=== PATIENT | male | born 1955 | race African-American/Black ===

== ENCOUNTER 2018-09-28 15:27 | Observation (INO) | payer OTHER ==
[2018-09-28] MEDS ORDERED: NA CHLORIDE 0.9% 100 ML IV ONE (16:28)
[2018-09-28] MEDS ORDERED: MIDODRINE HCL 5 MG TABLET PO ONE (17:00)
--- NOTE | 2018-09-28 17:01 | RAD REPORT ---
EXAM DESCRIPTION: RAD - Shoulder Left 2 View - 09/28/2018 4:35 pm CLINICAL HISTORY: Left shoulder pain COMPARISON: None. TECHNIQUE: Internal and external rotation views of the left shoulder were obtained. FINDINGS: There is no fracture or dislocation. AC joint is normal in appearance. Minimal degenerativ e change seen along the undersurface of the acromion. Acromial humeral joint space is normal. No abno rmal soft tissue calcifications. IMPRESSION: Mild left shoulder degenerative change. No acute finding.
--- NOTE | 2018-09-28 17:03 | RAD REPORT ---
EXAM DESCRIPTION: RAD - Chest Single View - 09/28/2018 4:35 pm CLINICAL HISTORY: Dialysis patient, hypotension, weakness, confusion COMPARISON: None. TECHNIQUE: AP portable chest image was obtained 1631 hours . FINDINGS: Lungs are underinflated. Interstitial markings are prominent in both lung [place] with base line for the patient unknown. There is focal pleural and parenchymal opacification in the lateral rig ht base. In the absence of a comparison common pneumonia and pleural effusion would be the primary co nsideration. Cardiomegaly is present. Vasculature is prominent. No pneumothorax. No acute bony abnorm ality seen. No acute aortic findings suspected. IMPRESSION: Baseline chest film showing right base pleural and parenchymal opacification. In the absence of new comparison, right base pneumonia and pleural effusion would be the primary cons ideration. Cardiomegaly and vascular engorgement are present. A mild failure or volume overload suspected as berna lewis
[2018-09-28 17:17] LABS: Absolute Lymphocytes (CBC) 0.3 K/uL (0.7-4.9); Absolute Monocytes 0.6 K/uL (0.1-1.3); Absolute Neutrophil 4.3 K/uL (1.8-8.0); Eosinophils % 3.2 % (0-4.4); Hematocrit 37.7 % (39.6-49.0); Lymphocytes % 6.1 % (15.3-44.8); MPV 9.5 fL (7.6-11.3); Monocytes % 11.6 % (3.3-12.3)
[2018-09-28 17:19] LABS: Protime INR 1.24
[2018-09-28 17:24] LABS: Albumin 3.5 g/dL (3.4-5.0); Bilirubin Direct 0.5 mg/dL (0-0.2); Bilirubin Total 0.9 mg/dL (0.2-1.0); Magnesium 2.2 mg/dL (1.8-2.4); Potassium 3.1 mmol/L (3.5-5.1); Protein, Total 7.8 g/dL (6.4-8.2); Troponin (Emerg Dept Use Only) 0.45 ng/mL (0.0-0.045)
--- NOTE | 2018-09-28 17:30 | EKG ---
Test Date: 2018-09-28 Test Time: 15:37:46 Broadcast Field Supervisor: LIDA MEASUREMENT RESULTS: Intervals: Rate: 78 NE: 232 QRSD: 160 QT: 480 QTc: 547 [place]: P: 73 NE: 232 QRS: 207 T: 116 INTERPRETIVE STATEMENTS: Sinus rhythm with 1st degree AV block with occasional premature ventricular complexes Right superior axis deviation Nonspecific intraventricular block Abnormal ECG No previous ECG available for comparison Electronically Signed On 09-28-18 16:20:21 CDT by Kenny Schulte
[2018-09-28] MEDS ORDERED: Levofloxacin500mg IV 500 MG/100 ML BAG IV ONE (17:33)
--- NOTE | 2018-09-28 18:02 | ER ---
Nurse's Notes [facility] Name: Jorge Alberto Middleton Jr Age: 63 yrs Sex: Male : 1955 Arrival Date: 09/28/2018 Time: 15:30 Bed 6 Private MD: Diagnosis: Hypotension;Altered mental status, unspecified;End stage renal disease;Pleural effusion, not elsewhere classified;Pneumonia Presentation: 09/28 15:30 Presenting complaint: states: "he got really weak and I helped him down to the aa5 floor and he started acting a little confused". EMS reports pt was A\\T\\Ox 4 at scene arrival and c/o left shoulder pain. EMS reports systolic BP 90s. Pt is unsure whether he took Midodrine prior to dialysis as prescribed. 15:30 Transition of care: patient was not received from another setting of care. Onset of aa5 symptoms was September 28, 2018. Care prior to arrival: Medication(s) given: zofran 4 mg, Fentanyl 50mcg IVP Glucose check: 134 Oxygen administered. via nasal cannula, 22 G inserted to L FA by EMS, IV was dc'd, Dialysis fistula noted to left FA. 15:30 Acuity: MENDY 2 aa5 15:30 Method Of Arrival: EMS: [facility] aa5 15:34 Risk Assessment: Do you want to hurt yourself or someone else? Patient reports no tw2 desire to harm self or others. 19:09 Initial Sepsis Screen: Does the patient meet any 2 criteria? No. Patient's initial tw2 sepsis screen is negative. Does the patient have a suspected source of infection? No. Patient's initial sepsis screen is negative. Historical: - Allergies: 15:33 Sulfa (Sulfonamide Antibiotics); tw2 15:30 PENICILLINS; aa5 - PMHx: 15:30 Myocardial infarction; Ejection Fraction 33%; Right Pleural Effusion; Dialysis- MWF; aa5 ESRD; - PSHx: 15:33 CABG; tw2 15:30 Cholecystectomy; Heart stents; cataracts; Dialysis fistula to L FA; aa5 - Immunization history:: Adult Immunizations. - Social history:: Smoking status: . - Ebola Screening: : Patient denies travel to an Ebola-affected area in the 21 days before illness onset. - Family history:: not pertinent. - Hospitalizations: : No recent hospitalization is reported. Screenin:33 Abuse screen: Denies threats or abuse. Nutritional screening: No deficits noted. tw2 Tuberculosis screening: No symptoms or risk factors identified. Fall Risk Secondary diagnosis (15 points) impaired mobility. Assessment: 15:40 Reassessment: Pt's called Dialysis and they reported they were only able to take aa5 0.2 Kg of fluid out due to pt's BP being low, around 90s systolic. MD was notified. . 16:23 Reassessment: pt updated on POC, spoke with Kaylene with lab services for assistance with a sg difficulty blood draw, awaiting lab at this time. 17:00 Reassessment: Patient appears in no apparent distress at this time. Patient and/or sg family updated on plan of care and expected duration. Pain level reassessed. pt family member remains at bedside at this time Patient denies pain at this time. Patient states feeling better. 18:00 Reassessment: Patient appears in no apparent distress at this time. Patient is alert, sg oriented x 3, equal unlabored respirations, skin warm/dry/pink. at bedside for insertion of IV and to obtain blood cultures at this time. 19:10 General: Appears in no apparent distress. uncomfortable, Behavior is calm, cooperative, tl2 appropriate for age. General:. Pain: Complains of pain in right arm. Neuro: Level of Consciousness is awake, alert, obeys commands, Oriented to person, place, time, situation. Neuro: Reports dizziness, weakness. Cardiovascular: Denies chest pain. Respiratory: Reports cough that is Airway is patent Respiratory effort is even, unlabored, Respiratory pattern is regular, symmetrical. GI: No signs and/or symptoms were reported involving the gastrointestinal system. : No signs and/or symptoms were reported regarding the genitourinary system. Derm: Skin is pink, warm \\T\\ dry. 21:54 Reassessment: 20 g R AC infiltrated. IV removed. Danica from ICU at bedside to attempt tl2 midline access. Vital Signs: 15:32 BP 76 / 58; Pulse 78; Resp 16; Pulse Ox 97% ; tw2 15:32 Temp 97.7(O); aa5 16:30 BP 104 / 68; Pulse 79; Resp 17; Pulse Ox 99% on R/A; tw2 17:30 BP 90 / 62; Pulse 76; Resp 17; Pulse Ox 100% on R/A; tw2 18:37 BP 95 / 61; Pulse 71; Resp 17; Pulse Ox 98% on R/A; sg 21:08 BP 93 / 57; Pulse 71; Resp 18; Pulse Ox 99% on R/A; tl2 ED Course: 15:30 Patient arrived in ED. tw2 15:31 Nasir Mclaughlin MD is Attending Physician. tw2 15:32 Hortencia Jackman RN is Primary Nurse. tw2 15:33 Placed in gown. Adult w/ patient. equipment monitor phototypesetting on. Pulse ox on. NIBP on. tw2 15:34 Arm band placed on. tw2 15:44 Triage completed. aa5 15:46 EKG done, by cell phone repair technician. reviewed by Nasir Mclaughlin MD. dt2 16:35 Inserted saline lock: 22 gauge in right antecubital area, using aseptic technique. jb1 16:36 XRAY Chest (1 view) In Process Unspecified. EDMS 16:36 XRAY Shoulder LEFT 2 view In Process Unspecified. EDMS 18:00 First set of blood cultures drawn by physician. Inserted saline lock: 20 gauge in right sg antecubital area, using aseptic technique. Blood collected. IV inserted by via ultrasound guided. 18:01 Margaret Hansen MD is Hospitalizing Provider. rn 18:20 Second set of blood cultures drawn by physician. sg 21:30 IV discontinued, intact, bleeding controlled, No redness/swelling at site. Pressure tl2 dressing applied. 22:17 Inserted saline lock: 18 gauge in right upper arm, using aseptic technique. placed by tl2 Danica JOINT CUTTER. 22:48 No provider procedures requiring assistance completed. tl2 Administered Medications: 16:42 Drug: midodrine 5 mg Route: PO; tw2 19:07 Follow up: Response: No adverse reaction tw2 18:20 Drug: NS 0.9% 100 ml Route: IV; Rate: 1 bolus; Site: right antecubital; sg 19:00 Follow up: IV Status: Completed infusion tl2 19:42 Drug: LevaQUIN 500 mg Volume: 100 ml; Route: IVPB; Infused Over: 60 mins; Site: right tl2 antecubital; 20:45 Follow up: IV Status: Completed infusion tl2 Outcome: 18:01 Decision to Hospitalize by Provider. rn 22:48 Admitted to Tele accompanied by nurse, via stretcher, room 419, with chart, Report tl2 called to CHRISTIE Vee 22:48 Condition: stable 22:48 Discharge instructions given to patient, Instructed on the need for admit. 22:50 Patient left the ED. tl2 Signatures: Dispatcher [employer] EDMS Omar Talamantes jb1 Alfredo Adamson RN RN Nasir Angeles MD MD rn Calderon, Audri RN RN aa5 Hortencia Jackman RN RN tw2 Basia Magana RN RN tl2 Lidya Shields dt2 Corrections: (The following items were deleted from the chart) 15:45 15:30 Presenting complaint: states: "he got really weak and I helped him down to aa5 the floor and he started acting a little confused". EMS reports pt was A\\T\\Ox 4 at scene arrival and c/o left shoulder pain. aa5 15:49 15:30 Presenting complaint: states: "he got really weak and I helped him down to aa5 the floor and he started acting a little confused". EMS reports pt was A\\T\\Ox 4 at scene arrival and c/o left shoulder pain. Pt is unsure whether he took Midodrine prior to dialysis as prescribed aa5 15:49 15:30 Care prior to arrival: Glucose check: 134 Oxygen administered. via nasal cannula, aa5 22 G inserted to L FA by EMS, IV was dc'd, Dialysis fistula noted to left FA. aa5
--- NOTE | 2018-09-28 18:03 | EDPHYS ---
Physician Documentation [facility] Name: Jorge Alberto Middleton Jr Age: 63 yrs Sex: Male : 1955 Arrival Date: 09/28/2018 Time: 15:30 Bed 6 Private MD: ED Physician Nasir Mclaughlin HPI: 09/28 15:40 This 63 yrs old Black Male presents to ER via Unassigned with complaints of weakness, rn AMS. 15:40 The patient presents with confusion, decreased responsiveness, disorientation. Onset: rn The symptoms/episode began/occurred today. Possible causes: unknown. Associated signs and symptoms: Pertinent positives: confusion, lightheadedness. Current symptoms: In the emergency department the patient's symptoms have improved. The patient has experienced similar episodes in the past. states after dialysis, patient was in another room, called for help, reports felt lightheaded, had to help him down, did not lose consciousness, no trauma, reports mild confusion, patient does not know if he took his midodrine today and apparently chronically has low blood pressure. Only took off 0.2kg of fluid off today due to low blood pressure and sent him home. . Historical: - Allergies: 15:33 Sulfa (Sulfonamide Antibiotics); tw2 15:30 PENICILLINS; aa5 - PMHx: 15:30 Myocardial infarction; Ejection Fraction 33%; Right Pleural Effusion; Dialysis- MWF; aa5 ESRD; - PSHx: 15:33 CABG; tw2 15:30 Cholecystectomy; Heart stents; cataracts; Dialysis fistula to L FA; aa5 - Immunization history:: Adult Immunizations. - Social history:: Smoking status: . - Ebola Screening: : Patient denies travel to an Ebola-affected area in the 21 days before illness onset. - Family history:: not pertinent. - Hospitalizations: : No recent hospitalization is reported. ROS: 15:40 Constitutional: Negative for fever, chills, and weight loss, Eyes: Negative for injury, rn pain, redness, and discharge, Neck: Negative for injury, pain, and swelling, Cardiovascular: Negative for chest pain, palpitations, and edema, Respiratory: Negative for shortness of breath, cough, wheezing, and pleuritic chest pain, Abdomen/GI: Negative for abdominal pain, nausea, vomiting, diarrhea, and constipation, MS/Extremity: + left shoulder pain Skin: Negative for injury, rash, and discoloration, Neuro: Negative for headache, numbness, tingling, and seizure. Exam: 15:40 Constitutional: This is a well developed, well nourished patient who is awake, alert, rn and in no acute distress. Appears irritated. Head/Face: Normocephalic, atraumatic. Eyes: Periorbital areas with no swelling, redness, or edema. ENT: very dry MM Neck: Trachea midline, no thyromegaly or masses palpated, and no cervical lymphadenopathy. Supple, full range of motion without nuchal rigidity, or vertebral point tenderness. No Meningismus. Cardiovascular: Regular rate and rhythm, No pulse deficits. Respiratory: Lungs have equal breath sounds bilaterally, clear to auscultation. No increased work of breathing, no retractions or nasal flaring. Abdomen/GI: soft, non-tender MS/ Extremity: No cyanosis. Neuro: Awake and alert, GCS 15, oriented to person, place, time, and situation. Cranial nerves II-XII grossly intact. Motor strength 5/5 in all present extremities. Vital Signs: 15:32 BP 76 / 58; Pulse 78; Resp 16; Pulse Ox 97% ; tw2 15:32 Temp 97.7(O); aa5 16:30 BP 104 / 68; Pulse 79; Resp 17; Pulse Ox 99% on R/A; tw2 17:30 BP 90 / 62; Pulse 76; Resp 17; Pulse Ox 100% on R/A; tw2 18:37 BP 95 / 61; Pulse 71; Resp 17; Pulse Ox 98% on R/A; sg 21:08 BP 93 / 57; Pulse 71; Resp 18; Pulse Ox 99% on R/A; tl2 MDM: 15:34 Patient medically screened. rn 16:06 Refusal of service: The patient/guardian displays adequate decision making capability rn and despite a detailed discussion of alternatives, benefits, risks, and consequences refuses: CT Scan. 16:06 ED course: refuses CT head, states is looking better and doesn't need it.. rn 17:59 Differential Diagnosis: electrolyte abnormality, pneumonia, sepsis, volume depletion. rn Data reviewed: vital signs, nurses notes, lab test result(s), EKG, radiologic studies, plain films, and as a result, I will admit patient. Counseling: I had a detailed discussion with the patient and/or guardian regarding: the historical points, exam findings, and any diagnostic results supporting the discharge/admit diagnosis, lab results, radiology results, the need for further work-up and treatment in the hospital. Admission orders: after a detailed discussion of the patient's condition and case, the admit orders are written by me. ED course: Pt with elevated BNP/troponin/lactate, states they have been doubling his dialysis to try and get rid of pleural effusion as well as 2 rounds on abx for 1 month. Will admit to Dr. Hansen for further w/u and Dr. Mcgee is his life skills specialist here. . ED course: BP improved to 90s systolic after 100cc fluid challenge and midodrine.. 09/28 15:37 Order name: CPK; Complete Time: 17:43 rn 09/28 15:37 Order name: Basic Metabolic Panel; Complete Time: 17:43 rn 09/28 15:37 Order name: CBC with Diff; Complete Time: 17:43 rn 09/28 15:37 Order name: Hepatic Function; Complete Time: 17:43 rn 09/28 15:37 Order name: Lipase; Complete Time: 17:43 rn 09/28 15:37 Order name: Magnesium; Complete Time: 17:43 rn 09/28 15:37 Order name: Protime (+inr); Complete Time: 17:43 rn 09/28 15:37 Order name: Ptt, Activated; Complete Time: 17:43 rn 09/28 15:37 Order name: Troponin (emerg Dept Use Only); Complete Time: 17:43 rn 09/28 15:37 Order name: Blood Culture Adult (2) rn 09/28 15:37 Order name: Procalcitonin; Complete Time: 17:43 rn 09/28 15:37 Order name: Lactate; Complete Time: 17:43 rn 09/28 15:37 Order name: BNP; Complete Time: 17:43 rn 09/28 18:25 Order name: C-Reactive Protein EDOR 09/28 15:37 Order name: EKG; Complete Time: 15:38 rn 09/28 15:37 Order name: Cardiac monitoring; Complete Time: 16:36 rn 09/28 15:37 Order name: EKG - Nurse/Tech; Complete Time: 19:14 rn 09/28 15:38 Order name: XRAY Chest (1 view); Complete Time: 17:05 rn 09/28 15:38 Order name: XRAY Shoulder LEFT 2 view; Complete Time: 17:05 rn 09/28 18:12 Order name: CONS Physician Consult EDOR 09/28 18:12 Order name: Carotid Artery Bilateral EDOR 09/28 18:12 Order name: Echo with Doppler EDOR 09/28 18:12 Order name: Head Brain Wo Cont EDOR 09/28 18:25 Order name: Heart Healthy EDOR 09/28 18:25 Order name: Procalcitonin EDOR 09/28 20:54 Order name: Lactate Sepsis 2 HR Follow-up [facility] 09/28 15:37 Order name: IV Saline Lock; Complete Time: 16:36 rn 09/28 15:37 Order name: Labs collected and sent; Complete Time: 19:13 rn 09/28 15:37 Order name: NPO; Complete Time: 19:13 rn 09/28 15:37 Order name: O2 Per Protocol; Complete Time: 16:36 rn 09/28 15:37 Order name: O2 Sat Monitoring; Complete Time: 16:36 rn Administered Medications: 16:42 Drug: midodrine 5 mg Route: PO; tw2 19:07 Follow up: Response: No adverse reaction tw2 18:20 Drug: NS 0.9% 100 ml Route: IV; Rate: 1 bolus; Site: right antecubital; sg 19:00 Follow up: IV Status: Completed infusion tl2 19:42 Drug: LevaQUIN 500 mg Volume: 100 ml; Route: IVPB; Infused Over: 60 mins; Site: right tl2 antecubital; 20:45 Follow up: IV Status: Completed infusion tl2 Disposition: 09/28/18 18:01 Hospitalization ordered by Margaret Hansen for Observation. Preliminary diagnosis are Hypotension, Altered mental status, unspecified, End stage renal disease, Pleural effusion, not elsewhere classified, Pneumonia. - Bed requested for Telemetry/MedSurg (observation). - Status is Observation. tl2 - Condition is Stable. - Problem is new. - Symptoms have improved. UTI on Admission? No Signatures: Dispatcher [employer] [facility] Nanda Larkin RN RN dw Gay, Steven, RN RN Nasir Mclaughlin MD MD rn Calderon, Audri, RN RN aa5 Hortencia Jackman, RN RN tw2 Basia Magana, RN RN tl2 Corrections: (The following items were deleted from the chart) 16:13 15:38 Head Brain Wo Cont+CT.RAD.BRZ ordered. EDMS EDMS 20:44 18:01 Hospitalization Ordered by Margaret Hansen MD for Observation. Preliminary dw diagnosis is Hypotension; Altered mental status, unspecified; End stage renal disease; Pleural effusion, not elsewhere classified; Pneumonia. Bed requested for Telemetry/MedSurg (observation). Status is Observation. Condition is Stable. Problem is new. Symptoms have improved. UTI on Admission? No. rn 22:50 20:44 09/28/2018 18:01 Hospitalization Ordered by Margaret Hansen MD for Observation. tl2 Preliminary diagnosis is Hypotension; Altered mental status, unspecified; End stage renal disease; Pleural effusion, not elsewhere classified; Pneumonia. Bed requested for Telemetry/MedSurg (observation). Status is Observation. Condition is Stable. Problem is new. Symptoms have improved. UTI on Admission? No. dw
--- NOTE | 2018-09-28 20:27 | RAD REPORT ---
EXAM DESCRIPTION: US - CP - 09/28/2018 7:35 pm CLINICAL HISTORY: Syncope COMPARISON: None. TECHNIQUE: Real-time sonographic evaluation of both carotid systems was performed. Hoyt scale and Do ppler interrogation were performed with waveform tracing bilaterally. FINDINGS: Normal high resistance waveforms are noted in both external carotid arteries. The common c arotid arteries and internal carotid arteries show normal low resistance waveforms. Prominent calcified plaquing changes are present in the bilateral common carotid arteries. Moderate c alcified plaquing changes are present in each carotid bulb. Visually the plaquing changes are borderl ine for being hemodynamically significant. The velocity values and ratios do not indicate significant stenosis. Peak systolic and end diastolic velocity values and the ICA/CCA ratios are in the non-hemo dynamically significant range. Antegrade flow seen in both vertebral arteries. Velocity values and ratios were recorded and are retained in the patient's imaging records. IMPRESSION: Significant calcified plaquing changes are present in each common carotid artery any eac h carotid bulb. Velocity values and ratios all are normal range. Collective findings are borderline for being hemodyn amically significant.
[2018-09-28] MEDS ORDERED: LIDOCAINE 1% MPF 5 ML VIAL ONE (21:54)
[2018-09-28] MEDS: INSULIN -REGULAR HUMAN 50 UNIT/0.5 ML ML SQ SCH (22:55)
[2018-09-29 06:13] LABS: Absolute Lymphocytes (CBC) 0.3 K/uL (0.7-4.9); Absolute Monocytes 0.6 K/uL (0.1-1.3); Basophils % 1.2 % (0-1.3); Lymphocytes % 7.8 % (15.3-44.8); Monocytes % 13.8 % (3.3-12.3); RBC Red Blood Cell Count 3.53 M/uL (4.33-5.43)
[2018-09-29 06:15] LABS: Albumin 3.2 g/dL (3.4-5.0); Bilirubin Total 0.7 mg/dL (0.2-1.0); Potassium 3.3 mmol/L (3.5-5.1); Protein, Total 7.1 g/dL (6.4-8.2)
[2018-09-29] MEDS: INSULIN -REGULAR HUMAN 50 UNIT/0.5 ML ML SQ SCH ×4 (07:30→20:50)
[2018-09-29] MEDS ORDERED: POTASSIUM CL SA 10 MEQ TAB PO ONE (08:22)
--- NOTE | 2018-09-29 09:32 | P.HP ---
Certification for Inpatient Patient admitted to: Observation With expected LOS: <2 Midnights Patient will require the following post-hospital care: None Practitioner: I am a practitioner with admitting privileges, knowledge of patient current condition, hospital course, and medical plan of care. Services: Services provided to patient in accordance with Admission requirements found in Title 42 Section 412.3 of the Code of Federal Regulations Patient History Date of Service: 09/28/18 Reason for admission: Syncope History of Present Illness: Patient is a 63-year-old gentleman who was at hemodialysis and completed his session earlier today. When he got home he became lightheaded and passed out. He normally has to take medication prior to hemodialysis to keep his blood pressure elevated. Going to shore if his blood pressure dropped substantially which is what brought him into the emergency room. Currently he states he feels much better. Initially his blood pressure was 70s over 50s. Currently his systolic is over 90s now. Continue monitoring cautiously. Allergies Sulfa (Sulfonamide Antibiotics) Allergy (Unknown, Verified 09/28/18 23:03) Unknown PENICILLINS Allergy (Uncoded 07/20/15 17:22) Unknown Home Medications: Aspirin [Amy Chewable] 81 mg PO DAILY 09/29/18 Atorvastatin Calcium [Lipitor] 40 mg PO BEDTIME 09/29/18 Budesonide/Formoterol Fumarate [Symbicort 160-4.5 Mcg Inhaler] 2 puff IH BID 07/08 Cinacalcet HCl [Sensipar] 30 mg PO DAILY 09/29/18 Folic Acid/Vitamin B Comp W-C [Nephro-Ambar Tablet] 1 tab PO DAILY 09/29/18 Gabapentin 300 mg PO BID 09/29/18 Insulin 70/30 NPH/Reg Human [Novolin 70/30*] 15 unit SQ BEDTIME 09/29/18 Levothyroxine Sodium 175 mcg PO DAILY 09/29/18 Midodrine HCl [Proamatine] 5 mg PO SEECOM 09/29/18 Sacubitril/Valsartan [Entresto 24 mg-26 mg Tablet] 1 tab PO DAILY 09/29/18 Sevelamer HCl [Renagel] 800 mg PO TIDWM 09/29/18 - Past Medical/Surgical History Has patient received pneumonia vaccine in the past: Yes Diabetic: Yes -: SC -: cardiac stents -: ESRD HD MWF -: HTN -: CAD -: asthma -: Pneumonia -: CABG x 4 vessels -: HD fistual Left FA -: Anitha -: Lf AKA -: Cardiac Stents - Family History Mother Medical History: Diabetes, Cancer Father Medical History: Kidney disease Notes: no sure of fathers medical history - Social History Smoking Status: Never smoker Alcohol use: Yes CD- Drugs: No Caffeine use: Yes Place of Residence: Home Review of Systems 10-point ROS is otherwise unremarkable Physical Examination - Vital Signs Temperature: 97.7 F Blood Pressure: 93/57 Pulse: 71 Respirations: 18 Pulse Ox (%): 95 - Physical Exam General: Alert, In no apparent distress, Oriented x3 HEENT: Atraumatic, PERRLA, Mucous membr. moist/pink, EOMI, Sclerae nonicteric Neck: Supple, 2+ carotid pulse no bruit, No LAD, Without JVD or thyroid abnormality Respiratory: Clear to auscultation bilaterally, Normal air movement Cardiovascular: Regular rate/rhythm, Normal S1 S2, Systolic murmur Gastrointestinal: Normal bowel sounds, Soft and benign, Non-distended, No tenderness Musculoskeletal: No clubbing, No swelling, No tenderness, Other (Left AKA) Integumentary: No rashes Neurological: Normal speech, Normal strength at 5/5 x4 extr, Normal tone, Sensation intact, Cranial nerves 3-12 intact, Normal affect, Abnormal gait Lymphatics: No axilla or inguinal lymphadenopathy - Studies Laboratory Data (last 24 hrs) 09/28/18 16:50: PT 14.5 H, INR 1.24, APTT 29.2 09/28/18 16:50: WBC 5.5, Hgb 12.1 L, Hct 37.7 L, Plt Count 129 L 09/28/18 16:50: Sodium 140, Potassium 3.1 L, BUN 11, Creatinine 2.88 H, Glucose 107 H, Magnesium 2.2, Total Bilirubin 0.9, AST 31, ALT 14, Alkaline Phosphatase 122 H, Lipase 253 Assessment & Plan - Problems (Diagnosis) (1) Syncope and collapse Current Visit: Yes Status: Acute (2) ESRD (end stage renal disease) Current Visit: Yes Status: Acute (3) CAD (coronary artery disease) Current Visit: Yes Status: Acute - Plan Plan: 1. Echocardiogram and carotid doppler 2. May need midodrine 3 times a day/Consult nephrology 3. Strict blood pressure and blood sugar control 4. Monitor electrolytes 5. GI and DVT prophylax Discharge Plan: Home Plan to discharge in: Greater than 2 days - Advance Directives Does patient have a Living Will: No Does patient have a Durable POA for Healthcare: No - Code Status/Comfort Care Code Status Assessed: Yes Code Status: Full Code Critical Care: No Time Spent Managing PTS Care (In Minutes): 45
[2018-09-29 10:35] VITALS: O2SAT 94
--- NOTE | 2018-09-29 10:48 | RAD REPORT ---
EXAM DESCRIPTION: CT - Head Brain W Cont - 09/29/2018 10:36 am CLINICAL HISTORY: syncope Headache, drowsiness, syncope COMPARISON: No comparisons TECHNIQUE: All CT scans are performed using dose optimization technique as appropriate and may inclu de automated exposure control or mA/KV adjustment according to patient size. FINDINGS: No intracranial hemorrhage, hydrocephalus or extra-axial fluid collection.No areas of brai n edema or evidence of midline shift. The paranasal sinuses and mastoids are clear. The calvarium is intact. Post-contrast sequences show no evidence of pathologic enhancement. IMPRESSION: Unremarkable examinations.
--- NOTE | 2018-09-29 10:55 | RAD REPORT ---
EXAM DESCRIPTION: CT - Thorax W/ Con CLINICAL HISTORY: Chest pain syncope COMPARISON: Chest Single View dated 09/28/2018 FINDINGS: Small loculated right pleural effusion is seen with airspace opacity in the right lung bas e likely representing pneumonia. A small left pleural effusion is also present. No pericardial fluid. No pneumothorax. Mild adenopathy is seen in the mediastinum No concerning bony finding. Trace ascites. All CT scans are performed using dose optimization technique as appropriate and may include automated exposure control or mA/KV adjustment according to patient size. IMPRESSION: Bilateral small pleural effusions with airspace opacity posterior right lung base, proba misty representing pneumonia.
--- NOTE | 2018-09-29 12:49 | ECHO ---
HEIGHT: 5 ft 7 in WEIGHT: 0 lb 0 oz DATE OF STUDY: 09/29/[address]: Margaret Hansen MD 2-DIMENSIONAL: YES M.MODE: YES DOPPLER: YES COLOR FLOW: YES TDS: NO PORTABLE: NO DEFINITY: NO BUBBLE STUDY: NO DIAGNOSIS: SYNCOPE CARDIAC HISTORY: CATHERIZATION: YES SURGERY: NO PROSTHETIC VALVE: NO PACEMAKER: NO MEASUREMENTS (cm) DIASTOLIC (NORMALS) SYSTOLIC (NORMALS) IVSd 1.0 (0.6-1.2) LA Diam 4.0 (1.9-4.0) LVEF 48% LVIDd 4.9 (3.5-5.7) LVIDs 3.8 (2.0-3.5) %FS 24% LVPWd 0.9 (0.6-1.2) Ao Diam 2.9 (2.0-3.7) 2 DIMENSIONAL ASSESSMENT: RIGHT ATRIUM: DILATED LEFT ATRIUM: NORMAL RIGHT VENTRICLE: DILATED LEFT VENTRICLE: NORMAL TRICUSPID VALVE: NORMAL MITRAL VALVE: NORMAL PULMONIC VALVE: NORMAL AORTIC VALVE: SCLEROSIS PERICARDIAL EFFUSION: NONE AORTIC ROOT: NORMAL LEFT VENTRICULAR WALL MOTION: PARADOXICAL SEPTAL MOTION SEEN WITH PULMONARY HYPERTENSION. DOPPLER/COLOR FLOW: MILD MITRAL AND TRICUSPID REGURGITATION. NO SIGNIFICANT TRICUSPID REGURGITATION JET TO ESTIMATED RIGHT VENTRICULAR SYSTOLIC PRESSURE. SEVERE PULMONARY HYPERTENSION IS SUSPECTED PULMONARY ARTERY DIASTOLIC PRESSURE > 16mmHg. COMMENTS: NORMAL LEFT VENTRICULAR EJECTION FRACTION WITH PARADOXICAL SEPTAL MOTION. DILATED RIGHT ATRIUM AND VENTRICLE. AORTIC SCLEROSIS WITH NO AORTIC STENOSIS OR AORTIC REGURGITATION. MILD MITRAL AND TRICUSPID REGURGITATION. UNABLE TO ESTIMATE RIGHT VENTRICULAR SYSTOLIC PRESSURE, BUT SEVER PULMONARY HYPERTENSION IS SUSPECTED . TECHNOLOGIST: HENRY JOHNSON
[2018-09-29] MEDS ORDERED: CEFTRIAXONE/SWI 1gm 1 GM/10 ML SYR IVP ONE (14:00)
[2018-09-29] MEDS ORDERED: VANCOMYCIN/NS 1 gm 1 GM/250 ML BAG IVPB SCH (14:00)
[2018-09-29] MEDS ORDERED: MIDODRINE HCL 5 MG TABLET PO SCH (14:00)
[2018-09-29] MEDS ORDERED: GLUCAGON 1 MG/VIAL IM PRN (14:41)
[2018-09-29] MEDS ORDERED: D50W 25 GM/50 ML SYRINGE IV PRN (14:41)
[2018-09-29] MEDS ORDERED: MIDODRINE HCL 5 MG TABLET PO PRN (15:22)
[2018-09-29 16:58] VITALS: BP 101/49; TEMP 97.8
[2018-09-29] MEDS ORDERED: SEVELAMER CARBONATE 800 MG TABLET PO SCH (17:00)
[2018-09-29] MEDS ORDERED: HOME MED 1 EA UNK (Sevelamer Hcl 800 MG) PO SCH (17:00)
--- NOTE | 2018-09-29 17:47 | CON ---
Date of Consultation: 09/29/2018 Additional Consulting Physician: Dr. Hansen. Reason For Consultation: Elevated BUN and creatinine, fluid management, end-stage renal disease. History Of Present Illness: This is a pleasant 63-year-old gentleman, well known to me from the dial ysis, with significant past medical history of end-stage renal disease, on hemodialysis Friday, , Friday at [facility]; hypertension; hyperlipidemia; coronary artery disease com plicated with congestive heart failure, ejection fraction of 20%; peripheral vascular disease, status post stenting; coronary artery disease, status post PTCA; prostate cancer, status post radiation the rapy. The patient is known to have a pleural effusion for the last 3 months. Follows up with Yoni broussard in [place]. Been treated multiple times. No bronchoscopy. No CT. The patient came to the hosp ital yesterday after he finished the dialysis session. They could not remove fluid because of the lo w blood pressure. The patient was symptomatic. For that reason, brought to the hospital. The patie nt denies any chest pain. Still has some shortness of breath and facial swelling. Upon admission, b lood pressure was on the lower side. Then, gradually blood pressure maintained good. The patient de nies any fever, any chills. According to the patient, for the last 3 months, as I mentioned, treated for pleural effusion. No br onchoscopy. No tap was done yet. Allergies: TO SULFA AND PENICILLIN. Home Medications: Include aspirin, atorvastatin, Advair, Sensipar, gabapentin, insulin, levothyroxin e, midodrine, Renvela. Past Surgical History: Includes gbvux-cle-[id number] amputation on the left, multiple peripheral stents, m ultiple PTCAs, AV fistula creation, cardiac cath, CABG for 4 vessels. Past Medical History: Includes: 1.Coronary artery disease, status post CABG, status post angioplasty, complicated with congestive he art failure. 2.Hypertension. 3.End-stage renal disease, on hemodialysis Friday, Friday, Friday at [facility]. 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 5.Prostate cancer. Family History: Positive for diabetes and cancer. Social History: Denies smoking. Denies drinking. Denies drug abuse. Review of Systems: Head and Neck: No red eye. No ear pain. Has facial swelling. GI: No nausea. No vomiting. : No polyuria. No dysuria. No hematuria. INTERNIST MEDICAL DOCTOR MD: Not applicable. Respiratory: Has shortness of breath. Cardiovascular: Has orthopnea. Endocrine: No polydipsia. Skin: No rash. Neuro: Has neuropathy. Musculoskeletal: No pain. Physical Examination: Vital Signs: When I saw the patient, blood pressure 99/51, pulse of 65. Chest: Crackles bilateral. Heart: S1, S2. Systolic murmur. Abdomen: Soft, nontender. Extremities: Left juolp-hbr-ileu amputation. No edema. Cold right leg. Neurological: Alert and oriented x3. Nonfocal. Laboratory Data: WBC 4.2, H and H 11.7/37, platelet 142. Sodium 141, potassium 3.3, bicarb 28, BUN 17, creatinine 3.7, calcium 9.5. Chest x-ray; cardiomegaly, right pleural effusion, congestion. Current Medications: The patient on midodrine, KCl. Assessment And Plan: 1.End-stage renal disease, over-volume. I am going to go ahead and resume midodrine before dialysis . We will hold on Entresto for the time being to avoid low blood pressure. We will do extra session of dialysis today. We will do just sequential to try to establish better volume control. Then, mustapha orrow the patient is going to be back to his schedule. We will follow up echocardiogram to evaluate if there is any pericardial effusion. 2.Hypertension, currently low blood pressure. We will hold Entresto. We will use midodrine. 3.Anemia of chronic kidney disease. Resume Epogen. 4.Pleural effusion. Full workup has been done without any thoracocentesis. The patient's family is reluctant to do any thoracocentesis currently. We will get CT with contrast given the history of pr ostate cancer, and we will follow up. 5.Presumption of pneumonia. I am going to start the patient on IV antibiotic. We will try to estab hemalatha better lower dry weight and we will follow up. 6.Secondary hyperparathyroidism. Resume Sensipar and binder. 7.Coronary artery disease, as by Primary. ALEX/JOSÉ MANUEL Voice ID: [id number] Report ID: [id number]
--- NOTE | 2018-09-29 18:21 | P.SSS ---
Patient History Date of Service: 09/29/18 Reason for admission: Syncope History of Present Illness: Patient is a 63-year-old gentleman who was at hemodialysis and completed his session earlier today. When he got home he became lightheaded and passed out. He normally has to take medication prior to hemodialysis to keep his blood pressure elevated. Going [place] if his blood pressure dropped substantially which is what brought him into the emergency room. Currently he states he feels much better. Initially his blood pressure was 70s over 50s. Currently his systolic is over 90s now. Continue monitoring cautiously. Allergies Sulfa (Sulfonamide Antibiotics) Allergy (Unknown, Verified 09/28/18 23:03) Unknown PENICILLINS Allergy (Uncoded 07/20/15 17:22) Unknown Home Medications: Aspirin [Amy Chewable Aspirin] 81 mg PO DAILY 09/29/18 Atorvastatin Calcium [Lipitor] 40 mg PO BEDTIME 09/29/18 Budesonide/Formoterol Fumarate [Symbicort 160-4.5 Mcg Inhaler] 2 puff IH BID 07/08 Cinacalcet HCl [Sensipar*] 30 mg PO DAILY 09/29/18 Folic Acid/Vitamin B Comp W-C [Nephro-Ambar Tablet] 1 tab PO DAILY 09/29/18 Gabapentin 300 mg PO BID 09/29/18 Insulin 70/30 NPH/Reg Human [Novolin 70/30*] 15 unit SQ BEDTIME 09/29/18 Levothyroxine Sodium 175 mcg PO DAILY 09/29/18 Midodrine HCl [Proamatine*] 5 mg PO SEECOM 09/29/18 Sacubitril/Valsartan [Entresto 24 mg-26 mg Tablet] 1 tab PO DAILY 09/29/18 Sevelamer HCl [Renagel] 800 mg PO TIDWM 09/29/18 - Past Medical/Surgical History Has patient received pneumonia vaccine in the past: Yes Diabetic: Yes -: AR -: cardiac stents -: ESRD HD MWF -: HTN -: CAD -: asthma -: Pneumonia -: CABG x 4 vessels -: HD fistual Left FA -: Anitha -: Lf AKA -: Cardiac Stents - Family History Mother -: Diabetes, Cancer Father -: Kidney disease Notes: no sure of fathers medical history - Social History Smoking Status: Never smoker Alcohol use: Yes CD- Drugs: No Caffeine use: Yes Place of Residence: Home Review of Systems 10-point ROS is otherwise unremarkable Physical Examination - Vital Signs Temperature: 97.8 F Blood Pressure: 101/49 Pulse: 73 Respirations: 16 Pulse Ox (%): 97 - Physical Exam General: Alert, In no apparent distress HEENT: Atraumatic, PERRLA, Mucous membr. moist/pink, EOMI, Sclerae nonicteric Neck: Supple, 2+ carotid pulse no bruit, No LAD, Without JVD or thyroid abnormality Respiratory: Clear to auscultation bilaterally, Normal air movement Cardiovascular: Regular rate/rhythm, Normal S1 S2 Gastrointestinal: Normal bowel sounds, No tenderness Musculoskeletal: No tenderness Integumentary: No rashes Neurological: Normal gait, Normal speech, Normal strength at 5/5 x4 extr, Normal tone, Normal affect Lymphatics: No axilla or inguinal lymphadenopathy - Diagnosis (Problem(s)) (1) Syncope and collapse Current Visit: Yes Status: Acute (2) CAD (coronary artery disease) Current Visit: Yes Status: Chronic Qualifiers: Coronary Disease-Associated Artery/Lesion type: [place] artery [place] vs. transplanted heart: [place] heart Associated angina: without angina Qualified Code(s): I25.10 - Atherosclerotic heart disease of [place] coronary artery without angina pectoris (3) ESRD (end stage renal disease) Current Visit: Yes Status: Chronic Treatment Summary: Overall during the hospital stay patient remained stable Patient was initially admitted to the hospital for syncopal workup post dialysis most likely secondary to orthostatics hypotension. Patient had syncopal workup done here in the hospital with head CT being negative echocardiogram and carotid Dopplers were within normal limits. Patient also had CTA which was negative here in the hospital. Nephrology was consulted here in the hospital due to patient's end-stage renal disease being on hemodialysis. Patient's syncopal episode resolved while here in the hospital patient did well overall. At that time a decision was made to discharge the patient home after dialysis. Patient had hemodialysis here in the hospital after which patient was discharged home under stable condition. - Disposition Disposition: ROUTINE DISCHARGE Condition: GOOD Patient Discharge Instructions: Please F.u with PCP and Nephrology in 1 to 2 week post discharge. No New medication Diet: Regular Activity: Ad katie
[2018-09-29] MEDS ORDERED: GABAPENTIN 300 MG CAP PO SCH (21:00)
[2018-09-29] MEDS ORDERED: HOME MED 1 EA UNK (Budesonide/Formoterol Fumarate [Symbicort 160-4.5 Mcg Inhaler] 2 PUFF) IH SCH (21:00)
[2018-09-29] MEDS ORDERED: ATORVASTATIN 40 MG TAB PO SCH (21:00)
[2018-09-30] MEDS ORDERED: LEVOTHYROXINE SOD 0.075 MG TAB PO SCH (06:30)
[2018-09-30] MEDS ORDERED: LEVOTHYROXINE SOD 0.1 MG TAB PO SCH (06:30)
[2018-09-30] MEDS ORDERED: ASPIRIN 81 MG CHEWABLE TABLET PO SCH (09:00)
[2018-09-30] MEDS ORDERED: HOME MED 1 EA UNK (Levothyroxine Sodium [Levothyroxine Sodium] 175 MCG) PO SCH (09:00)
[2018-09-30] MEDS ORDERED: CINACALCET HCL 30 MG TAB PO SCH (09:00)
[2018-09-30] MEDS ORDERED: SACUBITRIL/VALSARTAN 24/26 MG TAB PO SCH (09:00)
[2018-09-30] MEDS ORDERED: VITAMIN B COMP W C PO SCH (09:00)
[2018-09-30] MEDS ORDERED: MULTIVITAMINS,THERAPEUT 1 TAB PO SCH (09:00)
[2018-09-30] MEDS ORDERED: FOLIC ACID PO SCH (09:00)
== END 2018-09-29 21:06 | disposition home or self-care (01) ==
LOC: ER 15:27 → ERHOLD 18:24 → 4TH 22:16
PROVIDERS: ADMIT Family Medicine; ATTEND Hospitalist
DX: R55 Syncope and collapse (principal); I25.10 Atherosclerotic heart disease of native coronary artery without angina pectoris; I13.2 Hypertensive heart and chronic kidney disease with heart failure and with stage 5 chronic kidney disease, or end stage renal disease; E11.22 Type 2 diabetes mellitus with diabetic chronic kidney disease; N18.6 End stage renal disease; I50.9 Heart failure, unspecified; D63.1 Anemia in chronic kidney disease; Z99.2 Dependence on renal dialysis; Z95.1 Presence of aortocoronary bypass graft; Z89.612 Acquired absence of left leg above knee; Z95.5 Presence of coronary angioplasty implant and graft; Z88.0 Allergy status to penicillin; Z88.2 Allergy status to sulfonamides; I25.2 Old myocardial infarction; Z85.46 Personal history of malignant neoplasm of prostate
CPT/HCPCS: 96365; 96367; 93005; 93306; 87040 ×2; 85025 ×2; 80048; 36415; 83735; 82550; 85610; 82962 ×4; 80076; 83605 ×2; 85730; 80202; 84484; 83690; 80053; 86317; 84145 ×2; 83880; 87340; 86706; 86140; 70460; 71260; 71045; 73030; 90935; 93880; 99285; Q9967; J3370; J0696; G0378 ×2